=== PATIENT | female | born 1960 | race African-American/Black ===

== ENCOUNTER 2016-11-14 08:17 | Inpatient (IN) | payer OTHER, MEDICAID, MEDICARE ==
[~2016-11-14] VITALS: Ht 165.1 cm; Wt 71.2 kg
[2016-11-14] VITALS (9 sets, daily range): BP systolic 82–150; BP diastolic 50–91; PULSE 64–88; RESP 16–18; TEMP 97.7–98; O2SAT 92–100
[~2016-11-14 08:17] MED LIST: BLOOD GLUCOSE T1 TES; DICL1GEL TOPICAL; GABA300C5 PO; GABA600T PO; LEVEMIR SQ; LISI20TA PO; METF1000 PO; MULT1TAB84 PO; NOVOLOGSS SQ; OMEGCAP PO; VITA10002 PO; ZANT150T2 PO
--- NOTE | 2016-11-14 08:55 | PD ---
HPI Chief Complaint: Abnormal Results Time Seen by Provider: 08:49 Travel History International Travel<30 days: No Contact w/Intl Traveler<30days: No Traveled to known affect area: No History of Present Illness HPI 56yo F with PMH of IDDM, HTN, HLD, peripheral neuropathy presents to the ED with c/o elevated blood glucose for 3 days. States she has been having productive cough. +Nausea. She took 7 units of her insulin this morning. Denies any fever, chest pain, sob, vomiting, abdominal pain, focal weakness or numbness. PFSH Past Medical History Arthritis: No Asthma: No Autoimmune Disease: No Blood Disorders: No Heart Rhythm Problems: No Cancer: No Cardiovascular Problems: No High Cholesterol: Yes Chest Pain: No Congestive Heart Failure: No COPD: No Diabetes: Yes (last dose novolog 7 units and metformin 1000 mg this am) Patient Takes Glucophage: No Diminished Hearing: No Endocrine: Yes Gastrointestinal Disorders: Yes GERD: Yes Genitourinary: No Headaches: No Hepatitis: No Hiatal Hernia: No Hypertension: Yes Immune Disorder: No Kidney Stones: Yes Musculoskeletal: No Neurologic: No Psychiatric: No Reproductive: No Respiratory: No Migraines: No Myocardial Infarction: No Renal Failure: No Seizures: No Sickle Cell Disease: No Sleep Apnea: No Thyroid Disease: No Ulcer: No Influenza Vaccination: Yes PNEUMOCCOCAL Vaccine (Year): 2 ?: Not Menopausal: Yes : 6 Para: 7 Ectopic : Yes Past Surgical History Abdominal Surgery: No AICD: No Appendectomy: No Cardiac Surgery: No Cholecystectomy: No Ear Surgery: No Endocrine Surgery: No Eye Surgery: No Genitourinary Surgery: No Gynecologic Surgery: Yes (TUBAL ) Joint Replacement: No Oral Surgery: No Pacemaker: No Thoracic Surgery: No Other Surgery: Yes (LEFT CARPAL TUNNEL ) Social History Alcohol Use: Yes (once a week) Tobacco Use: No Substance Use: No Allergies-Medications (Allergen,Severity, Reaction): Coded Allergies: No Known Allergies (Unverified , 09/13/16) Reported Meds & Prescriptions Reported Meds & Active Scripts Active Lisinopril-Hctz 20-12.5 Mg Tab 1 Tab PO DAILY Levemir Inj (Insulin Detemir) 1,000 unit/ 10 ML Vial 7 Units SQ HS Do not mix with any other Insulin. Novolog Inj (Insulin Aspart) 100 Unit/Ml Inj 7.5 Units SQ DIRECTED TAKE BEFORE BREAKFAST AND DINNER Zantac (Ranitidine HCl) 150 Mg Tab 150 Mg PO BID Metformin (Metformin HCl) 1,000 Mg Tab 1,000 Mg PO BIDPC With meals Gabapentin 600 Mg Tab 600 Mg PO TID Blood Glucose Test Strips 1 Dayanara Dayanara 1 Ea .ROUTE DIRECTED Voltaren Topical (Diclofenac Topical) 1% Gel 1 Applic TOPICAL QID Gabapentin 300 Mg Cap 300 Mg PO TID Reported Multivitamin Adults (Multiple Vitamins W/ Minerals) 1 Tab 1 Tab PO DAILY [place]-3 Fish Oil/Vitamin (Fish Oil-Cholecalciferol) 1,000-1,000 Mg Cap 1 Cap PO DAILY Vitamin B-12 (Cyanocobalamin) 1,000 Mcg Tab 1,000 Mcg PO DAILY Review of Systems Except as stated in HPI: all other systems reviewed are Neg Physical Exam Narrative GENERAL: 56yo F not in distress. SKIN: Focused skin assessment warm/dry. HEAD: Atraumatic. Normocephalic. EYES: Pupils equal and round. No scleral icterus. No injection or drainage. ENT: No nasal bleeding or discharge. Mucous membranes pink and moist. NECK: Trachea midline. No JVD. CARDIOVASCULAR: Regular rate and rhythm. No murmur appreciated. RESPIRATORY: No accessory muscle use. Clear to auscultation. Breath sounds equal bilaterally. GASTROINTESTINAL: Abdomen soft, non-tender, nondistended. MUSCULOSKELETAL: No obvious deformities. No clubbing. No cyanosis. No edema. NEUROLOGICAL: Awake and alert. No obvious cranial nerve deficits. Motor grossly within normal limits. Normal speech. PSYCHIATRIC: Appropriate mood and affect; insight and judgment normal. Data Data Last Documented VS Vital Signs Date Time Temp Pulse Resp B/P Pulse Ox O2 Delivery O2 Flow Rate FiO2 11/14/16 09:15 92 Nasal Cannula 2.00 11/14/16 08:44 83 16 135/91 11/14/16 08:21 97.7 Orders Lipase (11/14/16 08:55) Complete Blood Count With Diff (11/14/16 08:55) Comprehensive Metabolic Panel (11/14/16 08:55) Magnesium (Mg) (11/14/16 08:55) Beta Hydroxybutyrate (Acetone) (11/14/16 08:55) Chest, Single Ap (11/14/16 ) Sodium Chlor 0.9% 1000 Ml Inj (Ns 1000 M (11/14/16 09:00) Blood Gas Venous (Vbg) (11/14/16 08:56) Urinalysis - C+S If Indicated (11/14/16 08:57) Sodium Chlor 0.9% 1000 Ml Inj (Ns 1000 M (11/14/16 10:00) Insulin Human Regular Inj (Novolin R Inj (11/14/16 10:00) Potassium Chlor 20 Meq Premix (Kcl 20 Me (11/14/16 10:00) Potassium Chlor 20 Meq Premix (Kcl 20 Me (11/14/16 10:00) Potassium Chlor 20 Meq Premix (Kcl 20 Me (11/14/16 10:00) Admit Order (Ed Use Only) (11/14/16 10:18) Labs Laboratory Tests Test 11/14/16 11/14/16 11/14/16 08:45 09:08 09:50 White Blood Count 9.9 TH/MM3 Red Blood Count 7.31 MIL/MM3 Hemoglobin 16.0 GM/DL Hematocrit 50.5 % Mean Corpuscular Volume 69.1 FL Mean Corpuscular Hemoglobin 21.9 PG Mean Corpuscular Hemoglobin 31.6 % Concent Red Cell Distribution Width 14.8 % Platelet Count 251 TH/MM3 Mean Platelet Volume 11.4 FL Neutrophils (%) (Auto) 62.2 % Lymphocytes (%) (Auto) 30.1 % Monocytes (%) (Auto) 4.2 % Eosinophils (%) (Auto) 2.8 % Basophils (%) (Auto) 0.7 % Neutrophils # (Auto) 6.1 TH/MM3 Lymphocytes # (Auto) 3.0 TH/MM3 Monocytes # (Auto) 0.4 TH/MM3 Eosinophils # (Auto) 0.3 TH/MM3 Basophils # (Auto) 0.1 TH/MM3 CBC Comment AUTO DIFF Differential Comment AUTO DIFF CONFIRMED Sodium Level 120 MEQ/L Potassium Level 5.1 MEQ/L Chloride Level 84 MEQ/L Carbon Dioxide Level 19.4 MEQ/L Anion Gap 17 MEQ/L Blood Urea Nitrogen 65 MG/DL Creatinine 3.00 MG/DL Estimat Glomerular Filtration 19 ML/MIN Rate Random Glucose 670 MG/DL Serum Osmolality 333 MOSM/KG Calcium Level 10.5 MG/DL Magnesium Level 2.5 MG/DL Total Bilirubin 0.5 MG/DL Aspartate Amino Transf 19 U/L (AST/SGOT) Alanine Aminotransferase 28 U/L (ALT/SGPT) Alkaline Phosphatase 141 U/L Total Protein 9.8 GM/DL Albumin 4.1 GM/DL Lipase 432 U/L B-Hydroxybutyrate 2.66 MMOL/L Blood Gas Puncture Site LAC Blood Gas Patient Temperature 98.6 Venous Blood pH 7.26 Venous Blood Partial Pressure 50 mmHg CO2 Venous Blood Partial Pressure 18 mmHg O2 Venous Blood HCO3 22 mmol/L Venous Blood Oxygen Saturation 22 % Venous Blood Oxygen Content 4.8 Vol % Venous Blood Base Excess -4.1 mmol/L Oxygen Delivery Device RA Blood Gas Inspired Oxygen 21 % Urine Color LIGHT-YELLOW Urine Turbidity CLEAR Urine pH 5.0 Urine Specific [place] 1.020 Urine Protein TRACE mg/dL Urine Glucose (UA) 1000 mg/dL Urine Ketones 10 mg/dL Urine Occult Blood TRACE Urine Nitrite NEG Urine Bilirubin NEG Urine Urobilinogen LESS THAN 2.0 MG/DL Urine Leukocyte Esterase NEG Urine RBC LESS THAN 1 /hpf Urine WBC 1 /hpf Urine Squamous Epithelial 1 /hpf Cells Urine Bacteria RARE /hpf Urine Mucus FEW /lpf Microscopic Urinalysis Comment CULT NOT INDICATED MDM Medical Decision Making Medical Screen Exam Complete: Yes Emergency Medical Condition: Yes Differential Diagnosis DKA vs. HHS vs. dehydration vs. pneumonia Narrative Course 56yo F with IDDM here with elevated blood glucose. Labs reviewed, no leukocytosis but pt is hemoconcentrated and very dehydrated. Pt given NS IVF x2. VBG showed respiratory acidosis with PCO2 50 and pH 7.26. Glucose is elevated at 670 with increased anion gap of 17. K: 5.1. Hyponatremia secondary to hyperglycemia. K: 5.1. Pt started on insulin bolus and drip. Pt also with SIS with BUN/creatinine of 65/3.0. b-Hydroxybutyrate is elevated at 2.66. CXR negative. UA pending. Discussed with Dr. Olea and accepted to ICU under her care. Critical Care Narrative Aggregate critical care time was 40 minutes. Time to perform other separately billable procedures was not included in the critical care time. My time did not include minutes spent treating any other patients simultaneously or on activities that did not directly contribute to the patient's treatment. The services I provided to this patient were to treat and/or prevent clinically significant deterioration that could result in: cardiovascular collapse or . I provided critical care services requiring my management, as noted below: Chart data review, documentation time, medication orders and management, vital sign assessments/reviewing monitor data, ordering and reviewing lab tests, ordering and interpreting/reviewing x-rays and diagnostic studies, care of the patient and discussion of the patient with the admitting physicians. Diagnosis Primary Impression: DKA (diabetic ketoacidoses) Qualified Code: E13.10 - Diabetic ketoacidosis without coma associated with other specified diabetes mellitus Admitting Information Admitting Physician Requests: Admit Essie Sykes DO November 14, 2016 08:55
[2016-11-14] MEDS ORDERED: SODIUM CHLOR 0.9% 1000 ML INJ 1,000 ML IV ONE ×2 (09:00→10:00)
[2016-11-14 09:13] LABS: BLOOD GAS VENOUS BASE EXCESS -4.1 mmol/L (-2-2); BLOOD GAS VENOUS HCO3 22 mmol/L (22-26); BLOOD GAS VENOUS O2 CONTENT 4.8 Vol % (9.0-17.0); BLOOD GAS VENOUS O2 HGB SAT 22 % (70-76); BLOOD GAS VENOUS PCO2 50 mmHg (44-48); BLOOD GAS VENOUS PO2 18 mmHg (35-40); BLOOD GAS VENOUS pH 7.26 (7.360-7.400); TEMP CORR TO 98.6
[2016-11-14 09:14] LABS: CRITICAL VALUE YES; DRAW SITE LAC; FIO2 21 %; OXYGEN DEVICE RA; STAT YES
--- NOTE | 2016-11-14 09:16 | RADRPT ---
EXAM DATE/TIME: 11/14/2016 08:53 [facility] COMPARISON: No previous studies available for comparison. INDICATIONS : Short of breath with cough. High sugar levels, diabetic. MEDICAL HISTORY : Diabetes mellitus type II. SURGICAL HISTORY : None. ENCOUNTER: Initial ACUITY: 1 day PAIN SCORE: 0/10 LOCATION: Bilateral chest FINDINGS: A single view of the chest demonstrates the lungs to be symmetrically aerated without evidence of mas s, infiltrate or effusion. The cardiomediastinal contours are unremarkable. Osseous structures are intact. CONCLUSION: No acute disease. Niraj Joshi MD on November 14, 2016 at 9:13 Board Certified Radiologist. This report was verified electronically.
[2016-11-14 09:22] LABS: AUTOMATED NEUTROPHIL # 6.1 TH/MM3 (1.8-7.7); BASOPHIL # 0.1 TH/MM3 (0-0.2); BASOPHIL % 0.7 % (0.0-2.0); EOSINOPHIL # 0.3 TH/MM3 (0-0.4); EOSINOPHIL % 2.8 % (0.0-4.0); HEMATOCRIT 50.5 % (35.0-46.0); LYMPH % 30.1 % (9.0-44.0); MEAN CELL VOLUME 69.1 FL (80.0-100.0); MEAN CORPUSCULAR HEMOGLOBIN 21.9 PG (27.0-34.0); MEAN CORPUSCULAR HGB CONC 31.6 % (32.0-36.0); MONO % 4.2 % (0.0-8.0); NEUT % 62.2 % (16.0-70.0); PLATELET COUNT 251 TH/MM3 (150-450); RED BLOOD COUNT 7.31 MIL/MM3 (4.00-5.30); RED CELL DISTRIBUTION WIDTH 14.8 % (11.6-17.2); WHITE BLOOD COUNT 9.9 TH/MM3 (4.0-11.0)
[2016-11-14 09:27] LABS: HEMO FLAGS AUTO DIFF
[2016-11-14 09:40] LABS: ANION GAP 17 MEQ/L (5-15)
[2016-11-14 09:45] LABS: ALKALINE PHOSPHATASE 141 U/L (45-117); ALT (GPT) 28 U/L (10-53); AST (GOT) 19 U/L (15-37); BETA-HYDROXYBUTYRATE 2.66 MMOL/L (0.00-0.39); BICARBONATE 19.4 MEQ/L (21.0-32.0); BLOOD UREA NITROGEN 65 MG/DL (7-18); CHLORIDE 84 MEQ/L (98-107); GLOMERULAR FILTRATION RATE 19 ML/MIN (>89); MAGNESIUM 2.5 MG/DL (1.5-2.5); TOTAL BILIRUBIN ADULT 0.5 MG/DL (0.2-1.0)
[2016-11-14 09:48] LABS: POTASSIUM 5.1 MEQ/L (3.5-5.1)
[2016-11-14 09:50] LABS: SODIUM (NA) 120 MEQ/L (136-145)
[2016-11-14] MEDS ORDERED: INSULIN HUMAN REGULAR 1,000 UNITS/10 ML VIAL IV PUSH ONE (10:00)
[2016-11-14] MEDS ORDERED: INSULIN REGULAR (IV INFUSION) 100 UNITS in SODIUM CHLORIDE 0.9% INJ 99 ML IV SCH ×2 (10:00→11:00)
[2016-11-14] MEDS ORDERED: POTASSIUM CHLOR 20 MEQ PREMIX 100 ML IV PRN ×3 (10:00)
[2016-11-14 10:08] LABS: SCAN/DIFF AUTO DIFF CONFIRMED
[2016-11-14 10:23] LABS: BACTERIA, URINE RARE /hpf; BLOOD, URINE TRACE (NEG); COMMENT (UR) CULT NOT INDICATED; CULTURE IF INDICATED CULT NOT INDICATED; GLUCOSE,URINE 1000 mg/dL (NEG); KETONE, URINE 10 mg/dL (NEG); MUCUS URINE FEW /lpf (OCC); NITRITE,URINE NEG (NEG); SQUAMOUS EPITHELIAL CELL URINE 1 /hpf (0-5); URINE COLOR LIGHT-YELLOW (YELLW/STRAW)
[2016-11-14] MEDS ORDERED: SODIUM BICARBONATE 8.4% SOLN 50 MEQ/50 ML VIAL IV PRN ×2 (10:30)
[2016-11-14] MEDS ORDERED: SODIUM CHLORIDE 0.9% FLUSH 10 ML FLUSH IV FLUSH PRN (10:30)
[2016-11-14] MEDS: SODIUM CHLOR 0.9% 1000 ML INJ 1,000 ML IV SCH ×3 (10:30→18:28)
[2016-11-14] MEDS ORDERED: CHLORHEXIDINE GLUCONATE 2 % 1 PACK (2 CLOTHS) TOP PRN (10:30)
[2016-11-14] MEDS ORDERED: SODIUM PHOSPHATE INJ 15 MMOL in SODIUM CHLORIDE 0.9% INJ 100 ML IV PRN (10:30)
[2016-11-14] MEDS ORDERED: MISCELLANEOUS NURSING INFORMATION XX SCH (10:30)
[2016-11-14] MEDS ORDERED: BISACODYL 10 MG SUPP RECTAL PRN (10:30)
[2016-11-14] MEDS ORDERED: ONDANSETRON HCL 4 MG/2 ML VIAL IVP PRN (10:30)
[2016-11-14] MEDS ORDERED: NALOXONE HCL 0.4 MG/ML AMP IV PRN (10:30)
[2016-11-14] MEDS ORDERED: LABETALOL HCL 100 MG/20 ML VIAL IV PUSH PRN (11:00)
[2016-11-14] MEDS: PANTOPRAZOLE SODIUM 40 MG VIAL IV PUSH SCH (11:00)
--- NOTE | 2016-11-14 11:00 | HHI.HP ---
[facility] Service [place] [facility] Primary Care Physician Jorge Myers MD Admission Diagnosis DKA Diagnoses: Chief Complaint: Elevated blood sugars Travel History International Travel<30 Days: No Contact w/Intl Traveler <30 Da: No Traveled to Known Affected Are: No History of Present Illness This is a 56-year-old female with type 2 diabetes insulin-dependent with peripheral neuropathy and hypertension who presented with elevated blood sugars , feeling unsteady, and shaky. Patient stated that a few days ago her sugars went up to the 500s. She stated prior from this her sugars are controlled in the 130s. Patient does admit having company. He days and has been eating poorly. She stated prior from the she's been feeling well. Patient stated that she monitor her sugars then just felt shaky and unsteady on her feet. She stated that about 2 days ago she felt nauseous and vomited one time. Deny any vomiting since then but during the interview she did vomit in front of me. Deny any dominant pain but stated that her abdomen did fill little queasy. Patient also stated that her vision has worsened. Patient stated that she still makes a good amount of urine and that has been the same. She denied any increase of urine output or decreased urine output. I any headache or focal neurological deficits. Patient states she had a cough but denied any other infection. Review of Systems Constitutional: COMPLAINS OF: Change in appetite, DENIES: Diaphoretic episodes , Fatigue, Fever, Weight gain, Weight loss, Chills, Dizziness, Night Sweats Endocrine: DENIES: Abnorml menstrual pattern, Heat/cold intolerance, Polydipsia , Polyuria, Polyphagia Eyes: COMPLAINS OF: Blurred vision, DENIES: Diplopia, Eye inflammation, Eye pain, Vision loss, Photosensitivity, Double Vision Respiratory: COMPLAINS OF: Cough, DENIES: Apneas, Snoring, Wheezing, Hemoptysis, Sputum production, Shortness of breath Cardiovascular: DENIES: Chest pain, Palpitations, Syncope, Dyspnea on Exertion , PND, Lower Extremity Edema, Orthopnea, Claudication Gastrointestinal: COMPLAINS OF: Nausea, Vomiting, DENIES: Abdominal pain, Black stools, Bloody stools, Constipation, Diarrhea, Difficulty Swallowing Genitourinary: DENIES: Abnormal vaginal bleeding, Dysmenorrhea, Dyspareunia, Sexual dysfunction, Urinary frequency, Urinary incontinence, Urgency, Hematuria , Dysuria, Nocturia, Vaginal discharge Musculoskeletal: DENIES: Joint pain, Muscle aches, Stiffness, Joint Swelling, Back pain, Neck pain Integumentary: DENIES: Abnormal pigmentation, Pruritus, Rash, Nail changes, Breast masses, Breast skin changes, Nipple discharge Hematologic/lymphatic: DENIES: Bruising, Lymphadenopathy Immunologic/allergic: DENIES: Eczema, Urticaria Neurologic: DENIES: Abnormal gait, Headache, Localized weakness, Paresthesias, Seizures, Speech Problems, Tremor, Poor Balance Psychiatric: DENIES: Anxiety, Confusion, Mood changes, Depression, Hallucinations, Agitation, Suicidal Ideation, Homicidal Ideation, Delusions Past Family Social History Past Medical History Type 2 diabetes insulin-dependent with peripheral neuropathy Peripheral neuropathy Right osteoarthritis Hypertension Past Surgical History Right knee surgery Reported Medications Reported Meds & Active Scripts Active Lisinopril-Hctz 20-12.5 Mg Tab 1 Tab PO DAILY Levemir Inj (Insulin Detemir) 1,000 unit/ 10 ML Vial 7 Units SQ HS Do not mix with any other Insulin. Novolog Inj (Insulin Aspart) 100 Unit/Ml Inj 7.5 Units SQ DIRECTED TAKE BEFORE BREAKFAST AND DINNER Zantac (Ranitidine HCl) 150 Mg Tab 150 Mg PO BID Metformin (Metformin HCl) 1,000 Mg Tab 1,000 Mg PO BIDPC With meals Gabapentin 600 Mg Tab 600 Mg PO TID Blood Glucose Test Strips 1 Dayanara Dayanara 1 Ea .ROUTE DIRECTED Voltaren Topical (Diclofenac Topical) 1% Gel 1 Applic TOPICAL QID Gabapentin 300 Mg Cap 300 Mg PO TID Reported Multivitamin Adults (Multiple Vitamins W/ Minerals) 1 Tab 1 Tab PO DAILY [place]-3 Fish Oil/Vitamin (Fish Oil-Cholecalciferol) 1,000-1,000 Mg Cap 1 Cap PO DAILY Vitamin B-12 (Cyanocobalamin) 1,000 Mcg Tab 1,000 Mcg PO DAILY Allergies: Coded Allergies: No Known Allergies (Unverified , 09/13/16) Active Ordered Medications Current Medications Sodium Chloride 1,000 ml @ 999 mls/hr BOLUS ONCE IV Last administered on t 09:00; Start 11/14/16 at 09:00; Stop 11/14/16 at 10:00; Status DC Sodium Chloride (NS 1000 ml Inj) 1,000 ml @ 999 mls/hr BOLUS ONCE IV Last administered on 11/14/16 10:51; Start 11/14/16 at 10:00; Stop 11/14/16 at 11:00 Insulin Human Regular 7 units 7 units BOLUS ONCE IV PUSH Last administered on 11/14/16 10:43; Start 11/14/16 at 10:00; Stop 11/14/16 at 10:01; Status DC Insulin Human Regular 100 units/ Sodium Chloride 100 ml @ 0 mls/hr TITRATE IV ; Start 11/14/16 at 10:00; Status Cancel Potassium Chloride 100 ml @ 50 mls/hr Q2H PRN IV SEE LABEL COMMENTS; Start 11/14/16 at 10:00 Potassium Chloride 100 ml @ 50 mls/hr Q2H PRN IV SEE LABEL COMMENTS; Start 11/14/16 at 10:00 Potassium Chloride (KCl 20 Meq Premix Inj) 100 ml @ 50 mls/hr Q2H PRN IV SEE LABEL COMMENTS; Start 11/14/16 at 10:00 Sodium Chloride (NS Flush) 2 ml UNSCH PRN IV FLUSH FLUSH AFTER USING IV ACCESS ; Start 11/14/16 at 10:30 Sodium Chloride (NS Flush) 2 ml BID IV FLUSH ; Start 11/14/16 at 21:00 Ondansetron HCl (Zofran Inj) 4 mg Q6H PRN IVP NAUSEA OR VOMITING; Start at 10:30 Bisacodyl (Dulcolax Supp) 10 mg DAILY PRN RECTAL CONSTIPATION; Start 11/14/16 at 10:30 Naloxone HCl 0.4 mg 0.4 mg UNSCH PRN IV SEE LABEL COMMENTS; Start 11/14/16 at 10 :30 Sodium Chloride 1,000 ml @ 250 mls/hr Q4H IV ; Start 11/14/16 at 11:00 Dextrose/Sodium Chloride 1,000 ml @ 200 mls/hr Q5H IV ; Start 11/14/16 at 11:00 Insulin Human Regular/Sodium Chloride (NovoLIN R (IV INFUSION)/NS Inj) 100 ml @ 0 mls/hr TITRATE IV ; Start 11/14/16 at 11:00 Sodium Bicarbonate (Sodium Bicarbonate 8.4% Inj) 100 meq UNSCH PRN IV SEE LABEL COMMENTS; Start 11/14/16 at 10:30 Sodium Bicarbonate 50 meq 50 meq UNSCH PRN IV SEE LABEL COMMENTS; Start at 10:30 Sodium Phosphate/ Sodium Chloride (Sodium Phosphate Inj/NS Inj) 105 ml @ 25 mls /hr UNSCH PRN IV SEE LABEL COMMENTS; Start 11/14/16 at 10:30 Miscellaneous Information 1 [id number] XX ; Start 11/14/16 at 10:30 Chlorhexidine Gluconate (Chlorhexidine 2% Cloth) 3 pack Taper DAILY@04 TOP ; Start 11/15/16 at 04:00; Stop 11/11/17 at 03:59 Chlorhexidine Gluconate (Chlorhexidine 2% Cloth) 3 pack UNSCH PRN TOP HYGIENIC CARE; Start 11/14/16 at 10:30 Family History Multiple family members with cardiovascular disease and diabetes. Deny any family history of cancer. Social History Patient lives at home. Deny any tobacco use. Patient only drinks wine on special occasions. Physical Exam Vital Signs Vital Signs Date Time Temp Pulse Resp B/P Pulse Ox O2 Delivery O2 Flow Rate FiO2 11/14/16 08:44 83 16 135/91 11/14/16 08:42 Room Air 11/14/16 08:32 142/91 11/14/16 08:21 97.7 88 18 150/83 97 Physical Exam GENERAL: This is a well-nourished, well-developed patient, in no apparent distress but did have episode of emesis during the interview. SKIN: No rashes, ecchymoses or lesions. Cool and dry. HEAD: Atraumatic. Normocephalic. No temporal or scalp tenderness. EYES: Pupils equal round and reactive. Extraocular motions intact. No scleral icterus. No injection or drainage. ENT: Nose without bleeding, purulent drainage or septal hematoma. Throat without erythema, tonsillar hypertrophy or exudate. Uvula midline. Airway patent. NECK: Trachea midline. No JVD or lymphadenopathy. Supple, nontender, no meningeal signs. CARDIOVASCULAR: Regular rate and rhythm without murmurs, gallops, or rubs. RESPIRATORY: Clear to auscultation. Breath sounds equal bilaterally. No wheezes , rales, or rhonchi. GASTROINTESTINAL: Abdomen soft, non-tender, nondistended. No hepato-splenomegaly , or palpable masses. No guarding. MUSCULOSKELETAL: Extremities without clubbing, cyanosis, or edema. No joint tenderness, effusion, or edema noted. No calf tenderness. Negative Homans sign bilaterally. NEUROLOGICAL: Awake and alert. Cranial nerves II through XII intact. Motor and sensory grossly within normal limits. Five out of 5 muscle strength in all muscle groups. Normal speech. Laboratory Laboratory Tests Test 11/14/16 11/14/16 11/14/16 08:45 09:08 09:50 White Blood Count 9.9 Red Blood Count 7.31 Hemoglobin 16.0 Hematocrit 50.5 Mean Corpuscular Volume 69.1 Mean Corpuscular Hemoglobin 21.9 Mean Corpuscular Hemoglobin 31.6 Concent Red Cell Distribution Width 14.8 Platelet Count 251 Mean Platelet Volume 11.4 Neutrophils (%) (Auto) 62.2 Lymphocytes (%) (Auto) 30.1 Monocytes (%) (Auto) 4.2 Eosinophils (%) (Auto) 2.8 Basophils (%) (Auto) 0.7 Neutrophils # (Auto) 6.1 Lymphocytes # (Auto) 3.0 Monocytes # (Auto) 0.4 Eosinophils # (Auto) 0.3 Basophils # (Auto) 0.1 CBC Comment AUTO DIFF Differential Comment AUTO DIFF CONFIRMED Sodium Level 120 Potassium Level 5.1 Chloride Level 84 Carbon Dioxide Level 19.4 Anion Gap 17 Blood Urea Nitrogen 65 Creatinine 3.00 Estimat Glomerular Filtration 19 Rate Random Glucose 670 Calcium Level 10.5 Magnesium Level 2.5 Total Bilirubin 0.5 Aspartate Amino Transf 19 (AST/SGOT) Alanine Aminotransferase 28 (ALT/SGPT) Alkaline Phosphatase 141 Total Protein 9.8 Albumin 4.1 Lipase 432 B-Hydroxybutyrate 2.66 Blood Gas Puncture Site LAC Blood Gas Patient Temperature 98.6 Venous Blood pH 7.26 Venous Blood Partial Pressure 50 CO2 Venous Blood Partial Pressure 18 O2 Venous Blood HCO3 22 Venous Blood Oxygen Saturation 22 Venous Blood Oxygen Content 4.8 Venous Blood Base Excess -4.1 Oxygen Delivery Device RA Blood Gas Inspired Oxygen 21 Urine Color LIGHT-YELLOW Urine Turbidity CLEAR Urine pH 5.0 Urine Specific [place] 1.020 Urine Protein TRACE Urine Glucose (UA) 1000 Urine Ketones 10 Urine Occult Blood TRACE Urine Nitrite NEG Urine Bilirubin NEG Urine Urobilinogen LESS THAN 2.0 Urine Leukocyte Esterase NEG Urine RBC LESS THAN 1 Urine WBC 1 Urine Squamous Epithelial 1 Cells Urine Bacteria RARE Urine Mucus FEW Microscopic Urinalysis Comment CULT NOT INDICATED Result Diagram: 11/14/16 0845 11/14/16 0845 Imaging Last Impressions Chest X-Ray 11/14/16 0000 Signed Impressions: Service Date/Time: Monday, November 14, 2016 08:53 - CONCLUSION: No acute disease. Niraj Joshi MD Assessment and Plan Assessment and Plan This is a 56-year-old female with type 2 diabetes insulin-dependent who presented with DKA versus HHS -anion gap is 17, BS is 600s, electrolytes reviewed and suggests hemoconcentration. Will get a serum osmolality. - Patient already see 2 L of IV boluses and IV insulin in the emergency department.Will implement DKA protocol. -Since patient did have an episode of emesis in front of me will keep patient nothing by mouth except for meds. -Will continue to monitor closely. Pseudohyponatremia -Due to hyperglycemia. This should improve with improvement in her glucose level. -Asymptomatic. We'll continue to monitor clinically. Seizure precautions. -We'll also monitor sodium levels. Elevated hemoglobin -Most likely secondary to hemoconcentration from severe dehydration. -We'll continue to monitor. At the moment she is asymptomatic. Acute renal failure -Last creatinine done on 09/26/15 creatinine was 1.25. Creatinine now is 3. Potassium is 5.1. -Most likely secondary to dehydration. Patient is getting aggressive fluid resuscitation. -We'll continue to monitor her creatinine and strict ins and outs. We'll get a renal ultrasound. -Avoid nephrotoxins. Which means we will need to hold lisinopril, metformin and gabapentin. Hypertension -Due to acute renal failure will need to hold lisinopril and hydrochlorothiazide. -Will put patient on when necessary labetalol. If blood pressure is elevated and she continues to be a renal failure starting amlodipine. Type 2 diabetes insulin-dependent with peripheral neuropathy -Patient is on NovoLog 7 units before meals and Levemir 7 units at night. -Will need to hold subcutaneous insulin and metformin as for treatment as above. DVT prophylaxis -Heparin renally dose. Code Status full Discussed Condition With patient and her nurse at bedside Physician Certification 2 Midnight Certification Type: Admission for Inpatient Services Order for Inpatient Services The services are ordered in accordance with Medicare regulations or non- Medicare payer requirements, as applicable. In the case of services not specified as inpatient-only, they are appropriately provided as inpatient services in accordance with the 2-midnight benchmark. Estimated LOS (days): 3 3 days is the estimated time the patient will need to remain in the hospital, assuming treatment plan goals are met and no additional complications. Post-Hospital Plan: Diana Park MD November 14, 2016 11:00
--- NOTE | 2016-11-14 13:33 | RADRPT ---
EXAM DATE/TIME: 11/14/2016 12:53 [facility] COMPARISON: No previous studies available for comparison. INDICATIONS : Increased BUN/creatinine. MEDICAL HISTORY : Hypercholesterolemia. Osteoarthritis. Tubal . GERD. Diabetes. SURGICAL HISTORY : Tubal removal. Right knee. ENCOUNTER: Initial ACUITY: 1 day PAIN SCORE: 0/10 LOCATION: Bilateral flank MEASUREMENTS: RIGHT KIDNEY: 11.0 x 4.8 x 4.5 cm LEFT KIDNEY: 10.2 x 5.0 x 4.8 cm FINDINGS: RIGHT KIDNEY: Renal cortex is normal in thickness and echotexture. No hydronephrosis, stone, or mass. LEFT KIDNEY: Renal cortex is normal in thickness and echotexture. 7 mm echogenic focus is identified in the upper lobe which may represent a focal calcification. No hydronephrosis or mass. BLADDER: Within normal limits given the degree of distension. CONCLUSION: 7 mm echogenic focus in the upper pole of left kidney suspicious for small calculus. No evidence of hydronephrosis. Otherwise unremarkable exam. Niraj Joshi MD on November 14, 2016 at 13:29 Board Certified Radiologist. This report was verified electronically.
[2016-11-14] MEDS: DEXT 5%-NACL 0.9% 1000 ML INJ 1,000 ML IV SCH ×2 (15:55→16:00)
[2016-11-14 17:35] LABS: BICARBONATE 21.5 MEQ/L (21.0-32.0); MAGNESIUM 2.4 MG/DL (1.5-2.5); POTASSIUM 3.7 MEQ/L (3.5-5.1)
[2016-11-14] MEDS ORDERED: DC previous DKA orders (HMC 1917) ONE (20:00)
[2016-11-14] MEDS ORDERED: DEXTROSE 50% IN WATER 50 ML VIAL(D50) IV PUSH PRN (20:00)
[2016-11-14] MEDS ORDERED: GLUCAGON 1 MG/ML VIAL OTHER PRN (20:00)
[2016-11-14] MEDS ORDERED: DC Insulin drip 2 hrs post basal insulin dose ONE (20:00)
[2016-11-14] MEDS ORDERED: INSULIN DETEMIR 100 UNITS/ML VIAL SQ SCH (21:00)
[2016-11-14] MEDS: SODIUM CHLORIDE 0.9% FLUSH 10 ML FLUSH IV FLUSH SCH (21:00)
[2016-11-14] MEDS: INSULIN ASPART SUPPLEMENTAL SCALE SQ SCH (21:58)
[2016-11-15] VITALS (9 sets, daily range): BP systolic 88–141; BP diastolic 51–86; PULSE 62–77; RESP 16–20; TEMP 98–98.7; O2SAT 97–100
[2016-11-15 03:53] LABS: HEMATOCRIT 41.4 % (35.0-46.0); MEAN CELL VOLUME 67.9 FL (80.0-100.0); MEAN CORPUSCULAR HEMOGLOBIN 21.8 PG (27.0-34.0); MEAN CORPUSCULAR HGB CONC 32.1 % (32.0-36.0); PLATELET COUNT 195 TH/MM3 (150-450); RED BLOOD COUNT 6.09 MIL/MM3 (4.00-5.30); RED CELL DISTRIBUTION WIDTH 14.8 % (11.6-17.2); WHITE BLOOD COUNT 10.3 TH/MM3 (4.0-11.0)
[2016-11-15 03:57] LABS: REVIEW FLAG FINAL
[2016-11-15] MEDS ORDERED: CHLORHEXIDINE GLUCONATE 2 % 1 PACK (2 CLOTHS) TOP SCH (04:00)
[2016-11-15 04:16] LABS: BICARBONATE 20.7 MEQ/L (21.0-32.0); MAGNESIUM 2.2 MG/DL (1.5-2.5); POTASSIUM 3.7 MEQ/L (3.5-5.1)
[2016-11-15] MEDS: INSULIN ASPART SUPPLEMENTAL SCALE SQ SCH ×5 (06:31→20:35)
[2016-11-15] MEDS: SODIUM CHLORIDE 0.9% FLUSH 10 ML FLUSH IV FLUSH SCH ×2 (09:00→20:35)
[2016-11-15] MEDS ORDERED: PNEUMOCOCCAL POLYVALENT INJ 25 MCG/0.5 ML SYR IM ONE (10:00)
[2016-11-15] MEDS: GABAPENTIN 300 MG CAP PO SCH (10:11)
[2016-11-15] MEDS: PANTOPRAZOLE SODIUM 40 MG VIAL IV PUSH SCH (10:12)
[2016-11-15 10:27] LABS: ALKALINE PHOSPHATASE 93 U/L (45-117); ALT (GPT) 19 U/L (10-53); ANION GAP 10 MEQ/L (5-15); AST (GOT) 12 U/L (15-37); BETA-HYDROXYBUTYRATE 0.46 MMOL/L (0.00-0.39); BICARBONATE 19.2 MEQ/L (21.0-32.0); BLOOD UREA NITROGEN 43 MG/DL (7-18); CHLORIDE 104 MEQ/L (98-107); GLOMERULAR FILTRATION RATE 36 ML/MIN (>89); SODIUM (NA) 133 MEQ/L (136-145); TOTAL BILIRUBIN ADULT 0.4 MG/DL (0.2-1.0)
--- NOTE | 2016-11-15 13:06 | HHI.PR ---
Subjective Remarks f/u for HHS /DKA patient stated she feels a lot better. Today she admits that she has been stretching out her insulin because she lost coverage for insulin. She stated she has been taking it as directed the past week but that she only took it if her sugars were high because she couldn't afford to pay for the insulin. denied any abdominal pain, N/V. d/w her nurse Basilio who was present for the interview at bedside. Objective Vitals Vital Signs Date Time Temp Pulse Resp B/P Pulse Ox O2 Delivery O2 Flow Rate FiO2 11/15/16 12:00 98.7 67 18 102/68 98 11/15/16 12:00 72 11/15/16 10:05 21 11/15/16 10:00 65 11/15/16 08:00 72 11/15/16 08:00 98.3 72 18 119/65 100 11/15/16 06:00 64 11/15/16 04:00 63 11/15/16 04:00 98.0 62 20 88/51 100 11/15/16 02:00 62 11/15/16 00:00 69 11/15/16 00:00 98.2 69 16 88/55 99 11/14/16 22:00 64 11/14/16 20:00 98.0 75 17 82/50 100 11/14/16 20:00 75 11/14/16 18:31 98.0 66 17 85/54 100 11/14/16 18:00 66 11/14/16 15:58 71 16 117/62 98 Room Air I/O 11/14/16 11/14/16 11/14/16 11/15/16 11/15/16 11/15/16 07:00 15:00 23:00 07:00 15:00 23:00 Intake Total 1365 ml 375 ml Balance 1365 ml 375 ml Intake Oral 240 ml 360 ml IV Total 1125 ml 15 ml # Voids 1 1 # Bowel Movements 0 0 Result Diagram: 11/15/160 11/15/16 0927 Objective Remarks GENERAL: in NAD SKIN: Warm and dry. HEAD: Normocephalic. EYES: No scleral icterus. No injection or drainage. NECK: Supple, trachea midline. No JVD or lymphadenopathy. CARDIOVASCULAR: Regular rate and rhythm without murmurs, gallops, or rubs. RESPIRATORY: Breath sounds equal bilaterally. No accessory muscle use. GASTROINTESTINAL: Abdomen soft, non-tender, nondistended. MUSCULOSKELETAL: No cyanosis, or edema. BACK: Nontender without obvious deformity. No CVA tenderness. Medications and IVs Current Medications Sodium Chloride 1,000 ml @ 999 mls/hr BOLUS ONCE IV Last administered on 09:00; Start 11/14/16 at 09:00; Stop 11/14/16 at 10:00; Status DC Sodium Chloride (NS 1000 ml Inj) 1,000 ml @ 999 mls/hr BOLUS ONCE IV Last administered on 11/14/16 10:51; Start 11/14/16 at 10:00; Stop 11/14/16 at 11:00; Status DC Insulin Human Regular 7 units 7 units BOLUS ONCE IV PUSH Last administered on 11/14/16 10:43; Start 11/14/16 at 10:00; Stop 11/14/16 at 10:01; Status DC Insulin Human Regular 100 units/ Sodium Chloride 100 ml @ 0 mls/hr TITRATE IV ; Start 11/14/16 at 10:00; Status Cancel Potassium Chloride 100 ml @ 50 mls/hr Q2H PRN IV SEE LABEL COMMENTS; Start 11/14/16 at 10:00; Stop 11/14/16 at 20:01; Status DC Potassium Chloride 100 ml @ 50 mls/hr Q2H PRN IV SEE LABEL COMMENTS; Start 11/14/16 at 10:00; Stop 11/14/16 at 20:01; Status DC Potassium Chloride (KCl 20 Meq Premix Inj) 100 ml @ 50 mls/hr Q2H PRN IV SEE LABEL COMMENTS; Start 11/14/16 at 10:00; Stop 11/14/16 at 20:01; Status DC Sodium Chloride (NS Flush) 2 ml UNSCH PRN IV FLUSH FLUSH AFTER USING IV ACCESS ; Start 11/14/16 at 10:30 Sodium Chloride (NS Flush) 2 ml BID IV FLUSH Last administered on 11/15/16 09: 00; Start 11/14/16 at 21:00 Ondansetron HCl (Zofran Inj) 4 mg Q6H PRN IVP NAUSEA OR VOMITING; Start at 10:30 Bisacodyl (Dulcolax Supp) 10 mg DAILY PRN RECTAL CONSTIPATION; Start 11/14/16 at 10:30 Naloxone HCl 0.4 mg 0.4 mg UNSCH PRN IV SEE LABEL COMMENTS; Start 11/14/16 at 10 :30 Sodium Chloride 1,000 ml @ 250 mls/hr Q4H IV Last administered on 11/14/16 12: 00; Start 11/14/16 at 11:00; Stop 11/14/16 at 20:00; Status DC Dextrose/Sodium Chloride 1,000 ml @ 200 mls/hr Q5H IV Last administered on 11/14 15:55; Start 11/14/16 at 11:00; Stop 11/14/16 at 20:00; Status DC Insulin Human Regular/Sodium Chloride (NovoLIN R (IV INFUSION)/NS Inj) 100 ml @ 0 mls/hr TITRATE IV Last administered on 11/14/16 11:22; Start 11/14/16 at 11:00 ; Stop 11/14/16 at 23:00; Status DC Sodium Bicarbonate (Sodium Bicarbonate 8.4% Inj) 100 meq UNSCH PRN IV SEE LABEL COMMENTS; Start 11/14/16 at 10:30; Stop 11/14/16 at 20:00; Status DC Sodium Bicarbonate 50 meq 50 meq UNSCH PRN IV SEE LABEL COMMENTS; Start at 10:30; Stop 11/14/16 at 20:00; Status DC Sodium Phosphate/ Sodium Chloride (Sodium Phosphate Inj/NS Inj) 105 ml @ 25 mls /hr UNSCH PRN IV SEE LABEL COMMENTS; Start 11/14/16 at 10:30; Stop 11/14/16 at 20 :00; Status DC Miscellaneous Information 1 Q361D XX ; Start 11/14/16 at 10:30 Chlorhexidine Gluconate (Chlorhexidine 2% Cloth) 3 pack Taper DAILY@04 TOP Last administered on 11/15/16 04:00; Start 11/15/16 at 04:00; Stop 11/11/17 at 03: 59 Chlorhexidine Gluconate (Chlorhexidine 2% Cloth) 3 pack UNSCH PRN TOP HYGIENIC CARE; Start 11/14/16 at 10:30 Pantoprazole Sodium (Protonix Inj) 40 mg Q24H IV PUSH Last administered on 10:12; Start 11/14/16 at 11:00 Labetalol HCl (Trandate Inj) 10 mg Q4H PRN IV PUSH SBP>180 or DBP>100; Start at 11:00 Pneumococcal Polyvalent Vaccine (Pneumovax-23 Inj) 25 mcg ONCE ONCE IM Last administered on 11/15/16 10:12; Start 11/15/16 at 10:00; Stop 11/15/16 at 10:01; Status DC Miscellaneous Information 1 ONCE ONCE .XX ; Start 11/14/16 at 20:00; Stop at 20:13; Status DC Miscellaneous Information 1 ONCE ONCE .XX ; Start 11/14/16 at 20:00; Stop at 20:15; Status DC Insulin Detemir (Levemir Inj) 7 units HS SQ Last administered on 11/14/16 21:57 ; Start 11/14/16 at 21:00; Stop 11/15/16 at 12:30; Status DC Insulin Aspart (NovoLOG SUPPLEMENTAL SCALE) 1 ACHS SLIDING SCALE SQ Last administered on 11/15/16 10:57; Start 11/14/16 at 21:00 Dextrose (D50w (Vial) Inj) 25 ml UNSCH PRN IV PUSH HYPOGLYCEMIA-SEE COMMENTS; Start 11/14/16 at 20:00 Glucagon (Glucagon Inj) 1 mg UNSCH PRN OTHER HYPOGLYCEMIA-SEE COMMENTS; Start 11/14/16 at 20:00 Gabapentin (Neurontin) 300 mg DAILY PO Last administered on 11/15/16 10:11; Start 11/15/16 at 10:00 Insulin Detemir (Levemir Inj) 10 units BID SQ ; Start 11/15/16 at 21:00 Insulin Aspart (NovoLOG INJ) 7 units ACHS SQ ; Start 11/15/16 at 16:00 A/P Assessment and Plan This is a 56-year-old female with type 2 diabetes insulin-dependent who presented with DKA versus HHS -more of HHS picture. -initially anion gap is 17, BS is 600s, electrolytes reviewed and suggests hemoconcentration. serum osmolality elevated 333. - Patient was given aggressive fluid resuscitation and was put on the DKA protocol. She is now off the insulin drip. -Blood sugars in the 300s. Will increase her Levemir to 10 units twice a day. Add NovoLog schedule before meals 7 units. Continue with insulin sliding scope. -Will consult informatics educator. Pseudohyponatremia -Initially presented with a sodium of 120. Her sodium is now 133. -Due to hyperglycemia. -Resolved. Patient is asymptomatic. Elevated hemoglobin -Most likely secondary to hemoconcentration from severe dehydration. -Improved. Patient is a systematic. Acute renal failure -Last creatinine done on 09/26/15 creatinine was 1.25. Creatinine on admission was 3. Potassium is 5.1. -Most likely secondary to dehydration. -Renal ultrasound shows a left small calculus with no obstruction. -Avoid nephrotoxins. -Improved. -Continue to hold metformin and lisinopril. -Continue with aggressive fluids. We'll continue to monitor ins and outs and . Hypertension -Due to acute renal failure will need to hold lisinopril and hydrochlorothiazide. -Patient has been hypotensive/normotensive. We'll continue to hold medication. She may not need any anti-hypertensive medication. Type 2 diabetes insulin-dependent with peripheral neuropathy -See treatment as above. DVT prophylaxis -Heparin renally dose. Discharge Planning Patient is improving but continues to have under control blood sugars and is in acute renal failure. She continues need IV fluids due to her renal failure. Patient can be downgraded to [facility]. Diana Olea MD November 15, 2016 13:06
[2016-11-15] MEDS: INSULIN ASPART 1,000 UNITS/10 ML VIAL SQ SCH ×2 (17:29→20:34)
[2016-11-15] MEDS: POTASSIUM PHOSPHATE MONOBASIC 500 MG TAB PO SCH (20:31)
[2016-11-15] MEDS: INSULIN DETEMIR 100 UNITS/ML VIAL SQ SCH (20:32)
[2016-11-15] MEDS: SODIUM CHLOR 0.9% 1000 ML INJ 1,000 ML IV SCH (20:38)
[2016-11-16 00:19] VITALS: BP 129/78; PULSE 74; RESP 18; TEMP 97.8; O2SAT 100
[2016-11-16] MEDS: INSULIN ASPART 1,000 UNITS/10 ML VIAL SQ SCH ×2 (06:37→12:04)
[2016-11-16] MEDS: INSULIN ASPART SUPPLEMENTAL SCALE SQ SCH ×2 (06:38→12:05)
[2016-11-16 07:21] LABS: HEMATOCRIT 43.8 % (35.0-46.0); MEAN CELL VOLUME 67.8 FL (80.0-100.0); PLATELET COUNT 201 TH/MM3 (150-450); RED BLOOD COUNT 6.46 MIL/MM3 (4.00-5.30); RED CELL DISTRIBUTION WIDTH 14.5 % (11.6-17.2); WHITE BLOOD COUNT 8.1 TH/MM3 (4.0-11.0)
[2016-11-16 07:23] LABS: REVIEW FLAG FINAL
[2016-11-16 07:59] VITALS: BP 109/76; PULSE 86; RESP 18; TEMP 97.4; O2SAT 99
[2016-11-16 08:04] LABS: POTASSIUM 3.8 MEQ/L (3.5-5.1)
[2016-11-16] MEDS: SODIUM CHLORIDE 0.9% FLUSH 10 ML FLUSH IV FLUSH SCH (09:00)
[2016-11-16] MEDS: GABAPENTIN 300 MG CAP PO SCH (09:02)
[2016-11-16] MEDS: POTASSIUM PHOSPHATE MONOBASIC 500 MG TAB PO SCH (09:02)
[2016-11-16] MEDS: INSULIN DETEMIR 100 UNITS/ML VIAL SQ SCH (09:04)
[2016-11-16] MEDS ORDERED: NOVOLOGP2 SQ ×2 (10:01)
[2016-11-16] MEDS ORDERED: INSU1INJ5 SQ (10:01)
[2016-11-16] MEDS ORDERED: GABA600T PO (10:01)
[2016-11-16] MEDS ORDERED: ONETTES4 (10:01)
[2016-11-16] MEDS ORDERED: K-PHTAB PO (10:01)
--- NOTE | 2016-11-16 10:03 | HHI.DS ---
Discharge Summary Admission Date November 14, 2016 at 10:20 Discharge Date: November 16, 2016 Admitting Diagnosis DKA (1) DKA (diabetic ketoacidoses) ICD Code: E13.10 Diagnosis: Principal (2) Secondary diabetes with hyperglycemia hyperosmolar non-ketotic coma ICD Code: E13.01 Diagnosis: Principal (3) SIS (acute kidney injury) ICD Code: N17.9 Diagnosis: Principal (4) HTN (hypertension) ICD Code: I10 Diagnosis: Secondary (5) GERD ICD Code: 530.81 Diagnosis: Secondary (6) Hyperlipidemia ICD Code: E78.5 Diagnosis: Secondary (7) Carpal tunnel syndrome ICD Code: G56.00 Procedures none Brief History - From Admission This is a 56-year-old female with type 2 diabetes insulin-dependent with peripheral neuropathy and hypertension who presented with elevated blood sugars , feeling unsteady, and shaky. Patient stated that a few days ago her sugars went up to the 500s. She stated prior from this her sugars are controlled in the 130s. Patient does admit having company. He days and has been eating poorly. She stated prior from the she's been feeling well. Patient stated that she monitor her sugars then just felt shaky and unsteady on her feet. She stated that about 2 days ago she felt nauseous and vomited one time. Deny any vomiting since then but during the interview she did vomit in front of me. Deny any dominant pain but stated that her abdomen did fill little queasy. Patient also stated that her vision has worsened. Patient stated that she still makes a good amount of urine and that has been the same. She denied any increase of urine output or decreased urine output. I any headache or focal neurological deficits. Patient states she had a cough but denied any other infection. CBC/BMP: 11/16/16 0702 11/16/16 0702 Significant Findings Laboratory Tests Test 11/14/16 11/14/16 11/14/16 11/14/16 08:45 09:08 09:50 16:51 Red Blood Count 7.31 MIL/MM3 (4.00-5.30) Hemoglobin 16.0 GM/DL (11.6-15.3) Hematocrit 50.5 % (35.0-46.0) Mean Corpuscular Volume 69.1 FL (80.0-100.0) Mean Corpuscular Hemoglobin 21.9 PG (27.0-34.0) Mean Corpuscular Hemoglobin 31.6 % Concent (32.0-36.0) Mean Platelet Volume 11.4 FL (7.0-11.0) Sodium Level 120 MEQ/L (136-145) Chloride Level 84 MEQ/L (98-107) Carbon Dioxide Level 19.4 MEQ/L (21.0-32.0) Anion Gap 17 MEQ/L (5-15) Blood Urea Nitrogen 65 MG/DL (7-18) 55 MG/DL (7-18) Creatinine 3.00 MG/DL 2.26 MG/DL (0.50-1.00) (0.50-1.00) Estimat Glomerular Filtration 19 ML/MIN (>89) 27 ML/MIN (>89) Rate Random Glucose 670 MG/DL 177 MG/DL (74-106) (74-106) Serum Osmolality 333 MOSM/KG (275-295) Calcium Level 10.5 MG/DL (8.5-10.1) Alkaline Phosphatase 141 U/L (45-117) Total Protein 9.8 GM/DL (6.4-8.2) Lipase 432 U/L (73-393) B-Hydroxybutyrate 2.66 MMOL/L (0.00-0.39) Venous Blood pH 7.26 (7.360-7.400) Venous Blood Partial Pressure 50 mmHg (44-48) CO2 Venous Blood Partial Pressure 18 mmHg (35-40) O2 Venous Blood Oxygen Saturation 22 % (70-76) Venous Blood Oxygen Content 4.8 Vol % (9.0-17.0) Venous Blood Base Excess -4.1 mmol/L (-2-2) Urine Glucose (UA) 1000 mg/dL (NEG) Urine Ketones 10 mg/dL (NEG) Urine Occult Blood TRACE (NEG) Urine Bacteria RARE /hpf (NONE) Urine Mucus FEW /lpf (OCC) Phosphorus Level 2.4 MG/DL (2.5-4.9) Test 11/15/16 11/15/16 11/16/16 03:10 09:27 07:02 Red Blood Count 6.09 MIL/MM3 6.46 MIL/MM3 (4.00-5.30) (4.00-5.30) Mean Corpuscular Volume 67.9 FL 67.8 FL (80.0-100.0) (80.0-100.0) Mean Corpuscular Hemoglobin 21.8 PG 21.0 PG (27.0-34.0) (27.0-34.0) Carbon Dioxide Level 20.7 MEQ/L 19.2 MEQ/L (21.0-32.0) (21.0-32.0) Blood Urea Nitrogen 49 MG/DL (7-18) 43 MG/DL (7-18) 34 MG/DL (7-18) Creatinine 1.71 MG/DL 1.74 MG/DL 1.50 MG/DL (0.50-1.00) (0.50-1.00) (0.50-1.00) Estimat Glomerular Filtration 37 ML/MIN (>89) 36 ML/MIN (>89) 43 ML/MIN (>89) Rate Random Glucose 150 MG/DL 387 MG/DL 252 MG/DL (74-106) (74-106) (74-106) Phosphorus Level 2.1 MG/DL 1.5 MG/DL (2.5-4.9) (2.5-4.9) Sodium Level 133 MEQ/L 134 MEQ/L (136-145) (136-145) Aspartate Amino Transf 12 U/L (15-37) (AST/SGOT) Albumin 3.3 GM/DL (3.4-5.0) B-Hydroxybutyrate 0.46 MMOL/L (0.00-0.39) Mean Corpuscular Hemoglobin 31.0 % Concent (32.0-36.0) Imaging Last Impressions Renal Ultrasound 11/14/16 0000 Signed Impressions: Service Date/Time: Monday, November 14, 2016 12:53 - CONCLUSION: 7 mm echogenic focus in the upper pole of left kidney suspicious for small calculus. No evidence of hydronephrosis. Otherwise unremarkable exam. Niraj Joshi MD Chest X-Ray 11/14/16 0000 Signed Impressions: Service Date/Time: Monday, November 14, 2016 08:53 - CONCLUSION: No acute disease. Niraj Joshi MD PE at Discharge GENERAL: in NAD SKIN: Warm and dry. HEAD: Normocephalic. EYES: No scleral icterus. No injection or drainage. NECK: Supple, trachea midline. No JVD or lymphadenopathy. CARDIOVASCULAR: Regular rate and rhythm without murmurs, gallops, or rubs. RESPIRATORY: Breath sounds equal bilaterally. No accessory muscle use. GASTROINTESTINAL: Abdomen soft, non-tender, nondistended. MUSCULOSKELETAL: No cyanosis, or edema. BACK: Nontender without obvious deformity. No CVA tenderness. Foot: no lesions or wounds noted Pt update on day of discharge Follow-up for DKA/HHN and acute renal failure. Patient denies any pain is tolerating by mouth intake. She has no complaints. Blood sugars have been in 230s. Patient stated that she spoke with the diabetes educator and that she is very comfortable managing her insulin. Patient is asking for refills on her medication. She said that she has an appointment with her new PCP within 1 week. Last night patient was walking she does step on a piece of glass but very minimal breakage in the skin. She denies any pain at the site. No acute events since patient was last seen. Hospital Course This is a 56-year-old female with type 2 diabetes insulin-dependent who presented with DKA versus HHS -more of HHS picture. -initially anion gap is 17, BS is 600s, electrolytes reviewed and suggests hemoconcentration. serum osmolality elevated 333. - Patient was given aggressive fluid resuscitation and was put on the DKA protocol. She was weaned off of insulin was put on subcutaneous insulin. -Since her blood sugars were in the 300s Levemir was increased to 10 units twice a day. I also added home dose of NovoLog 7 units before meals. -Blood sugars better controlled the 230s. Upon discharge Levemir was increased to 12 units twice a day and NovoLog 8 units before meals. She was also put on insulin sliding scale. -family life educator was consulted in which patient felt very comfortable managing her diabetes including insulin treatment.. Pseudohyponatremia -Due to hyperglycemia. -Initially presented with a sodium of 120 and resolve quickly with her treatment and hyperglycemia. -Resolved. Patient is asymptomatic. Elevated hemoglobin -Most likely secondary to hemoconcentration from severe dehydration. -Improved. Patient is asystematic. Acute renal failure -Last creatinine done on 09/26/15 creatinine was 1.25. Creatinine on admission was 3. Potassium is 5.1. -Most likely secondary to dehydration. -Renal ultrasound shows a left small calculus with no obstruction. -Avoid nephrotoxins. -Improved with IV hydration. Patient most likely has chronic renal disease secondary to uncontrolled diabetes. Most likely she may be at her baseline. -With treatment creatinine improved drastically and she made good urine output. -Metformin and lisinopril was held due to renal failure. Patient told that she will need a repeat BMP in 1 week and her primary care physician will decide if here she wants to restart the metformin and lisinopril. If her kidneys improve she would benefit from these medication. Hypertension -Due to acute renal failure will need to hold lisinopril and hydrochlorothiazide. -During hospitalization she's been normotensive. Once her kidneys improve I recommend starting an linda inhibitor or due to the benefits and chronic kidney disease with proteinuria in a diabetic patient. Type 2 diabetes insulin-dependent with peripheral neuropathy -See treatment as above. Patient was also given a dose of T Trey secondary to her stepping on a nail. Pt Condition on Discharge: Good Discharge Disposition: Discharge Home Discharge Time: > 30 minutes Discharge Instructions DIET: Follow Instructions for: Heart Healthy Diet, Diabetic Diet Activities you can perform: Regular-No Restrictions New Medications: Gabapentin (Gabapentin) 600 Mg Tab 600 MG PO BID neuropathy #60 Ref 0 TAB Insulin Aspart Inj (Novolog Inj) 1,000 Unit/10 Ml Vial 1-9 UNITS SQ ACHS Max dose at bedtime: sugars less than 70,(0)units; sugars 150- 199,(1) unit; sugars 200-249,(3) units; sugars 250-299,(5) units; sugars 300-349 ,(7) units; sugars greater than 349,(9) units Blood Sugar Management #10 Ref 0 ML Insulin Detemir Inj (Levemir Flextouch Pen Inj) 300 unit/3 ML Pen 12 UNITS SQ BID Blood Sugar Management #1 Ref 1 PEN Onetouch Ultra Test Strips (Onetouch Ultra Test Strips) 1 Dayanara Dayanara 1 STRIP .ROUTE QID Give one box Blood Sugar Management #1 Ref 1 BOX Insulin Aspart Inj (Novolog Inj) 1,000 Unit/10 Ml Vial 8 UNITS SQ ACHS diabetes #1 Ref 0 INJECTION Potassium Phosphate Monobasic (K-Phos) 500 Mg Tab 1000 MG PO Q12HR low phosphorus #14 Ref 0 TAB Continued Medications: Cyanocobalamin (Vitamin B-12) 1,000 Mcg Tab 1000 MCG PO DAILY Nutritional Supplement #1 Ref 0 BOTTLE Fish Oil-Cholecalciferol ([place]-3 Fish Oil/Vitamin) 1,000-1,000 Mg Cap 1 CAP PO DAILY Nutritional Supplement Ref 0 CAP Multiple Vitamins W/ Minerals (Multivitamin Adults) 1 Tab 1 TAB PO DAILY Nutritional Supplement Ref 0 TAB Ranitidine (Zantac) 150 Mg Tab 150 MG PO BID #60 Ref 6 TAB Discontinued Medications: Diclofenac Topical (Voltaren Topical) 1% Gel 1 APPLIC TOPICAL QID Pain Management #100 Ref 0 GM Gabapentin (Gabapentin) 300 Mg Cap 300 MG PO TID #90 Ref 6 CAP Gabapentin (Gabapentin) 600 Mg Tab 600 MG PO TID #90 Ref 6 TAB Insulin Aspart Inj (Novolog Inj) 100 Unit/Ml Inj 7.5 UNITS SQ DIRECTED TAKE BEFORE BREAKFAST AND DINNER #20 Ref 6 ML Insulin Detemir Inj (Levemir Inj) 1,000 unit/ 10 ML Vial 7 UNITS SQ HS Do not mix with any other Insulin. Blood Sugar Management #1 Ref 6 VIAL Lisinopril-Hctz (Lisinopril-Hctz) 20-12.5 Mg Tab 1 TAB PO DAILY Blood Pressure Management #30 Ref 6 TAB Metformin (Metformin) 1,000 Mg Tab 1000 MG PO BIDPC With meals Blood Sugar Management #60 Ref 6 TAB Diana Olea MD November 16, 2016 10:03
--- NOTE | 2016-11-16 10:03 | HHI.DCPOC ---
Discharge Care Plan Diagnosis: (1) SIS (acute kidney injury) (2) Secondary diabetes with hyperglycemia hyperosmolar non-ketotic coma (3) DKA (diabetic ketoacidoses) (4) HTN (hypertension) Goals to Promote Your Health * To prevent worsening of your condition and complications * To maintain your health at the optimal level Directions to Meet Your Goals Take your medications as prescribed Follow your dietary instruction Follow activity as directed Keep your appointments as scheduled Take your immunizations and boosters as scheduled If your symptoms worsen call your PCP, if no PCP go to Urgent Care Center or Emergency Room Smoking is Dangerous to Your Health. Avoid second hand smoke Call the 24-hour hour crisis hotline for domestic abuse at Diana Olea MD November 16, 2016 10:03
[2016-11-16] MEDS: PANTOPRAZOLE SODIUM 40 MG VIAL IV PUSH SCH (11:00)
[2016-11-16 11:17] VITALS: O2SAT 92
[2016-11-16 12:00] VITALS: BP 159/95; PULSE 98; RESP 18; TEMP 98.1; O2SAT 95
[2016-11-16] MEDS: SODIUM CHLOR 0.9% 1000 ML INJ 1,000 ML IV SCH (12:30)
[2016-11-16] MEDS ORDERED: DIPHTH/TETANUS/ACEL PERTUSSIS (BOOSTER) 0.5 ML VIAL/PFS IM ONE (13:00)
== END 2016-11-16 14:33 | disposition home or self-care (01) | DRG 638 ==
LOC: NEPC 08:17 → NEDA 10:20 → HIMW 11:10 → NEDA 11:42 → HIME 17:15 → N06A 11-15 13:56
PROVIDERS: ADMIT Family Medicine; ATTEND Family Medicine
DX: E13.10 Other specified diabetes mellitus with ketoacidosis without coma (principal); N17.9 Acute kidney failure, unspecified; E11.42 Type 2 diabetes mellitus with diabetic polyneuropathy; E86.0 Dehydration; K21.9 Gastro-esophageal reflux disease without esophagitis; E11.22 Type 2 diabetes mellitus with diabetic chronic kidney disease; I12.9 Hypertensive chronic kidney disease with stage 1 through stage 4 chronic kidney disease, or unspecified chronic kidney disease; N18.9 Chronic kidney disease, unspecified; Z79.4 Long term (current) use of insulin
CPT/HCPCS: 71010; 76775; 80048; 80053; 81001; 82010; 82805; 82948; 83690; 83735; 83930; 84100; 85025; 85027; 87641; 90715; 90732; 96360; C9113; J1815; J1817; J7030; J7042